=== PATIENT | female | born 1945 | race Caucasian/White ===

== ENCOUNTER → 2018-03-31 | Day surgery (SDC) | payer MEDICARE ==
[~2018-03-31] VITALS: Ht 165.1 cm; Wt 82.3 kg
[~2018-03-31] MED LIST: ACETAMINOPHEN 1000 MG/100 ML 100 ML IV ONE; ACETAMINOPHEN/HYDROcodone 325 MG/5 MG TAB ONE; ACETAMINOPHEN/HYDROcodone 325 MG/5 MG TAB PO PRN; APREPITANT 40 MG CAP ONE; APREPITANT 40 MG CAP PO ONE; ASPI81TA21 PO; ASPI81TA23 PO; BUPIVACAINE HCL PF 0.25% 30 ML VIAL ONE; CALC500T21 PO; CALCTAB19 PO; CHLORHEXIDINE GLUCONATE 2 % 1 PACK (2 CLOTHS) TOPICAL PRN; CHLORHEXIDINE GLUCONATE 4% SOLN 120 ML BTL TOPICAL SCH; DEXAMETHASONE SOD PHOS 20 MG/5 ML VIAL ONE; DEXAMETHASONE SOD PHOS 4 MG/ML VIAL IV ONE; DO NOT ADM ANY ANTICOAGULANT DRUGS PRN; ESMOLOL HCL 100 MG/10 ML VIAL IV ONE; FAMOTIDINE 20 MG/2 ML VIAL IV ONE; FAMOTIDINE 20 MG/2 ML VIAL ONE; GABA600T PO; GLUCTAB PO; KETOROLAC TROMETHAMINE 30 MG/ML (IVP) VIAL IV PUSH ONE; LACTATED RINGER'S 1000 ML IV PRN; LEVO.075 PO; LEVO75TA3 PO; LIDOCAINE HCL 1% PF 5 ML SYRINGE OTHER ONE; LISI-587 PO; MEPERIDINE HCL 50 MG/ML VIAL IM PRN; METF500T4 PO; METOCLOPRAMIDE HCL 10 MG/2 ML VIAL IV ONE; METOCLOPRAMIDE HCL 10 MG/2 ML VIAL ONE; METOPROLOL TARTRATE 25 MG TAB PO PRN; MIDAZOLAM HCL 2 MG/2 ML VIAL ONE; MULT-65 PO; ONCETAB7 PO; ONDANSETRON HCL 4 MG/2 ML VIAL IV ONE; ONDANSETRON HCL 4 MG/2 ML VIAL IV PUSH PRN; ONDANSETRON ODT 4 MG TAB PO PRN; POVIDONE IODINE 5% (ANTISEPSIS KIT) 4 APPLICATIONS EACH NARE PRN; PROPOFOL 200 MG/20 ML AMP IV ONE; PROT40TA PO; SODIUM CHLORID 0.9% 500 ML IV PRN; TAMO20TA4 PO; TAMO20TA6 PO; ceFAZolin 2 GM PREMIX 50 ML IV SCH; ceFAZolin INJ 1,000 MG VIAL IV ONE
--- NOTE | 2018-03-31 08:08 | MH ---
cc: Jeanie Dubois MD DATE OF ADMISSION: 03/31/2018 ADMITTING DIAGNOSIS: Torn medial meniscus and loose body, right knee now being admitted for arthroscopy, right knee. ADMISSION HISTORY AND PHYSICAL FOLLOWS: This is a pleasant 72-year-old female is being admitted today for arthroscopy right knee due to torn medial meniscus and loose body. PAST MEDICAL HISTORY: The patient has a history of hypertension, hypothyroidism and type 2 diabetes. CURRENT MEDICATIONS: 1. Gabapentin. 2. Levothyroxine. 3. Lisinopril. 4. Lyrica. 5. Metformin. 6. Oseltamivir. 7. Pantoprazole. 8. Tamoxifen. PAST SURGICAL HISTORY: Cholecystectomy, lumpectomy in her breast. REVIEW OF SYSTEMS: Noncontributory. FAMILY HISTORY: Noncontributory. SOCIAL HISTORY: She does not smoke or drink. ALLERGIES: NO KNOWN ALLERGIES. PHYSICAL EXAMINATION: GENERAL: We find a 72-year-old female well-developed, well-nourished, oriented x 3 complaining of pain in her right knee. VITAL SIGNS: Blood pressure 118/70, pulse 83 and regular, respirations 18, temperature 98.3, pulse oximetry 98 percent on room air. HEENT: PERRLA, EOMI. Ears, nose, mouth and clear. NECK: Supple. LUNGS: Clear. HEART: Regular rate. ABDOMEN: Soft, positive bowel sounds, nontender. EXTREMITIES: Reveals the right knee be tender with crepitance on range of motion. Neurovascularly intact to her toes. IMPRESSION AT THIS TIME: Torn medial meniscus and 5 mm loose body, right knee. PLAN: Admission for arthroscopy, excision of torn medial meniscus, and loose body today. The patient given a prescription for postoperative pain control in the office. Jeanie Dubois MD JRSha/DL , 12:42 PM , 01:16 PM
--- NOTE | 2018-03-31 12:44 | EKG ---
Date Performed: 03/31/2018 Time Performed: 08:49:31 PTAGE: 72 years EKG: Sinus rhythm NORMAL ECG Since the PREVIOUS TRACING , no significant change noted PREVIOUS TRACIN06/08/1995 07.19 DOCTOR: Shawn Walker Interpretating Date/Time 03/31/2018 12:41:11
--- NOTE | 2018-03-31 13:27 | MP ---
cc: Jeanie Dubois MD DATE OF OPERATION: 03/31/2018 PREOPERATIVE DIAGNOSIS: Torn meniscus and loose body, right knee. POSTOPERATIVE DIAGNOSIS: Torn meniscus and loose body, right knee. PROCEDURE PERFORMED: Excision of torn meniscus and removal of a loose body, right knee. SURGEON: Jeanie Dubois MD STATION MECHANIC APPRENTICE: Gadiel Vasquez CFA. ANESTHESIA: LMA. PROCEDURE: The patient was brought to the operating room and placed on the operating room table in the supine position. After successful induction of general anesthesia, the patient's right leg was prepped and draped in the usual manner. The knee was then placed in a knee callejas and tightened. Arthroscopic examination was then performed by making a stab wound over the proximal superior and medial aspect of the patellofemoral joint for insertion of the inflow cannula and fluid, followed by stab wounds over the medial and lateral joint margins respectively for insertion of the arthroscope, shaver and probe. Arthroscopic examination was then performed which revealed large tear of the posterior horn of the medial meniscus removed using ArthroCare cutting shaver and probe to afford a smooth surface along with some chondromalacia shaved smooth using the ArthroCare system. The anterior cruciate found to be intact. Lateral compartment found to be grossly intact. A pair of loose bodies identified, one was removed and the other one removed from the lateral joint where it was impinging. The patellofemoral joint found to be intact, plica noted and removed in the superior patellofemoral area. The wound irrigated copiously with lactated Ringer's solution and further search for loose bodies revealed no other loose bodies. Excess fluid removed. 8 mL of 0.25% Marcaine plain and 2 mL of Decadron inserted into the knee joint. Skin approximated with interrupted 3-0 nylon suture. Wet and then dry dressing applied to the wound, followed by Xeroform, sterile dressing, thigh-high Isaías wrap. No tourniquet utilized. ESTIMATED BLOOD LOSS: 5 mL. Sponge and counts correct. The patient tolerated the procedure well and left the operating room in satisfactory condition. MD HEBER Severino/TAMY , 01:15 PM , 01:25 PM
[2018-03-31 14:50] VITALS: BP 109/61; PULSE 93; RESP 18; TEMP 97.5; O2SAT 97
== END | disposition home or self-care (01) ==
LOC: HSDC 07:49
PROVIDERS: ATTEND Surgery
DX: S83.241A Other tear of medial meniscus, current injury, right knee, initial encounter (principal); I10 Essential (primary) hypertension; E11.9 Type 2 diabetes mellitus without complications; E03.9 Hypothyroidism, unspecified; Z79.84 Long term (current) use of oral hypoglycemic drugs; Z01.810 Encounter for preprocedural cardiovascular examination
CPT/HCPCS: 01400; 29881; 93005; E0113; J0131; J0690; J1100; J1885; J2250; J2405; J2765; J3010; J7120; J8501